=== PATIENT | male | born 1980 | race Caucasian/White ===

== ENCOUNTER → 2016-10-14 | Outpatient (CLI) | payer MEDICAID ==
[~2016-10-14] MED LIST: CIPRO 500MG TA500 MG PO; LORTAB 5/500 501 TAB PO
[2016-10-14 18:39] LABS: LYMPH # 1.7 K/mm3 (0.7-4.5); LYMPH % 26.5 % (10-50)
[2016-10-14 20:55] LABS: URINE BILIRUBIN - DIPSTICK NEGATIVE (NEG); URINE BLOOD NEGATIVE (NEG)
[2016-10-14 21:29] LABS: BUN 13 mg/dL (7-18)
[2016-10-14 21:35] LABS: URINE SQUAMOUS CELLS OCC #/hpf (OCC)
[2016-10-14 21:40] LABS: GFR (ESTIMATED) 97 ML/MIN (>60)
== END ==
LOC: LAB 16:54
PROVIDERS: Physician Assistant
DX: Z00.00 Encounter for general adult medical examination without abnormal findings (principal)